=== PATIENT | female | born 1980 | race Caucasian/White ===

== ENCOUNTER 2018-05-18 04:22 | Emergency (ER) | payer MEDICAID ==
[~2018-05-18] VITALS: Ht 165.1 cm; Wt 56.7 kg
[2018-05-18 04:30] VITALS: BP 155/82
[2018-05-18] MEDS ORDERED: NKM (04:30)
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
[2018-05-18] MEDS ORDERED: Oxymetazoline 0.05% Na Spray 30ml NASAL ONE (05:30)
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
[2018-05-18] MEDS ORDERED: ZITHROMAX250 MG ORAL (06:42)
[2018-05-18] MEDS ORDERED: IBUPROFEN600 MG ORAL (06:42)
[2018-05-18 07:00] VITALS: BP 155/82
--- NOTE | 2018-05-18 07:00 | NUR ---
ED Nurse Note: Patient cleared cleared for discharge per ERMD. AO4. NAD. VSS. Patient states address on file. Patient given prescriptions and discharge instructions; verbalized understanding. ID removed. Patient ambulated steady out of ED with all belongings.
== END 2018-05-18 07:00 | disposition home or self-care (01) ==
LOC: EDBD 04:22 → EMR 04:40
DX: J02.9 Acute pharyngitis, unspecified (principal); Z88.0 Allergy status to penicillin; Z88.1 Allergy status to other antibiotic agents
CPT/HCPCS: 81025; 99283